=== PATIENT | male | born 1935 | race Two or more races ===

== ENCOUNTER 2018-10-06 15:25 | Inpatient (IN) | payer OTHER ==
[~2018-10-06] VITALS: Ht 175.3 cm; Wt 79.4 kg
[2018-10-06] MEDS ORDERED: LISINOPRIL40 MG (15:50)
[2018-10-06] MEDS ORDERED: NEURONTIN600 MG (15:52)
[2018-10-16] MEDS ORDERED: GABAPENTIN600 MG PO (12:17)
[2018-10-16] MEDS ORDERED: LISINOPRIL40 MG PO (12:18)
[2018-10-16] MEDS ORDERED: DOXAZOSIN MESYLA2 MG PO (12:19)
== END 2018-10-16 18:25 | disposition home or self-care (01) | DRG 657 ==
LOC: ER 15:25 → SURH 22:47 → MEDJ 22:47 → SURH 10-11 15:49
PROVIDERS: ADMIT Internal Medicine
PROC: BW21ZZZ Computerized Tomography (CT Scan) of Abdomen and Pelvis (ICD-10-PCS; 2018-10-06)
PROC: 0T9B70Z Drainage of Bladder with Drainage Device, Via Natural or Artificial Opening (ICD-10-PCS; 2018-10-06)
PROC: 0T9040Z Drainage of Right Kidney with Drainage Device, Percutaneous Endoscopic Approach (ICD-10-PCS; principal; 2018-10-09)
PROC: 0T9140Z Drainage of Left Kidney with Drainage Device, Percutaneous Endoscopic Approach (ICD-10-PCS; 2018-10-09)
PROC: 0TBB8ZZ Excision of Bladder, Via Natural or Artificial Opening Endoscopic (ICD-10-PCS; 2018-10-11)
DX: C79.11 Secondary malignant neoplasm of bladder (principal); N13.1 Hydronephrosis with ureteral stricture, not elsewhere classified; C77.2 Secondary and unspecified malignant neoplasm of intra-abdominal lymph nodes; N13.39 Other hydronephrosis; N17.8 Other acute kidney failure; N39.0 Urinary tract infection, site not specified; N13.2 Hydronephrosis with renal and ureteral calculous obstruction; K59.09 Other constipation; C61 Malignant neoplasm of prostate; D63.0 Anemia in neoplastic disease; R31.0 Gross hematuria; K57.30 Diverticulosis of large intestine without perforation or abscess without bleeding; E87.5 Hyperkalemia; E87.6 Hypokalemia